=== PATIENT | male | born 1960 | race Caucasian/White ===

== ENCOUNTER → 2016-06-27 | Outpatient (CLI) | payer BC ==
[~2016-06-27] VITALS: Ht 175.3 cm; Wt 104.3 kg
[~2016-06-27] MED LIST: ALPRAZOLAM PO; ESCI1TAB10 PO; ZOLP10TA PO
[2016-06-27 15:48] VITALS: BP 129/84; PULSE 96; Ht 175.3 cm; Wt 104.3 kg
== END | disposition home or self-care (01) ==
LOC: C.NEUR 14:33
PROVIDERS: ATTEND Internal Medicine Pulmonary Disease
DX: G47.30 Sleep apnea, unspecified (principal)